=== PATIENT | female | born 1985 | race Caucasian/White ===

== ENCOUNTER 2017-05-16 17:00 | Emergency (ER) | payer MEDICAID ==
[2017-05-16] MEDS ORDERED: Ketorolac 30 MG/ML SDV IVPUSH ONE (18:34)
[2017-05-16] MEDS ORDERED: Lactated Ringers 1,000 ML IV ONE (18:34)
[2017-05-16] MEDS ORDERED: Prochlorperazine 10 MG/2 ML SDV IVPUSH ONE (18:35)
[2017-05-16] MEDS ORDERED: diphenhydrAMINE 50 MG/ML SDV IVPUSH ONE (18:35)
--- NOTE | 2017-05-16 18:46 | EDM.PDOC ---
ED HPI GENERAL MEDICAL PROBLEM - General Chief Complaint: Headache Stated Complaint: MIGRAINE Time Seen by Provider: 05/16/17 18:25 Source of Information: Reports: Patient History Limitations: Reports: No Limitations - History of Present Illness INITIAL COMMENTS - FREE TEXT/NARRATIVE: 32 yo female here with a migraine since 0500h today. Took ibuprofen 400 mg and Imitrex as well today without relief. Has nausea without RAUSCH. Has no fever. Is visiting from the [place] area. Has photophobia. No recent head injury. 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: NSAIDS, Other Medication(s) (Imitrex) Headache Pain Score (Numeric/FACES): 8 - Related Data Allergies Allergy/AdvReac Type Severity Reaction Status Date / Time meperidine HCl [From Demerol] Allergy Hives Verified 09/29/13 11:18 Home Meds: Home Meds SUMAtriptan 100 mg PO DAILY 05/16/17 [History] Past Medical History Cardiovascular History: Reports: Other (See Below) 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: Musculoskeletal History: Reports: Back Pain, Chronic Psychiatric History: Reports: ADD Oncologic (Cancer) History: Reports: Other (See Below) Other Oncologic History: pre cancer cells - Infectious Disease History Infectious Disease History: Reports: Chicken Pox - Past Surgical History HEENT Surgical History: Reports: Adenoidectomy, Tonsillectomy GI Surgical History: Reports: Appendectomy Social & Family History - Tobacco Use Smoking Status *Q: Heavy Tobacco Smoker Years of Tobacco use: 20 Packs/Tins Daily: 1 - Caffeine Use Caffeine Use: Reports: Coffee, Energy Drinks, Soda - Recreational Drug Use Recreational Drug Use: No ED ROS GENERAL - Review of Systems Review Of Systems: See Below Constitutional: Reports: No Symptoms HEENT: Reports: No Symptoms Respiratory: Reports: No Symptoms Cardiovascular: Reports: No Symptoms Endocrine: Reports: No Symptoms GI/Abdominal: Reports: Nausea. Denies: Anorexia, Black Stool, Bloody Stool, Vomiting : Reports: No Symptoms Musculoskeletal: Reports: No Symptoms Skin: Reports: No Symptoms Neurological: Reports: Headache Psychiatric: Reports: No Symptoms - Physical Exam Exam: See Below Exam Limited By: No Limitations General Appearance: Alert, WD/WN, No Apparent Distress Eye Exam: Bilateral Eye: EOMI, Normal Inspection, PERRL Ears: Normal External Exam, Normal Canal, Hearing Grossly Normal, Normal TMs Nose: Normal Inspection, Normal Mucosa, No Blood Throat/Mouth: Normal Inspection, Normal Lips, Normal Teeth, Normal Oropharynx, Normal Voice, No Airway Compromise Head Exam: Atraumatic, Normocephalic Neck: Normal Inspection, Supple, Non-Tender Respiratory/Chest: No Respiratory Distress, Lungs Clear, Normal Breath Sounds, No Accessory Muscle Use Cardiovascular: Regular Rate, Rhythm, No Edema GI/Abdominal: Normal Bowel Sounds, Soft, Non-Tender, No Distention Neuro Exam (Abbreviated): Alert, Oriented, CN II-XII Intact, Normal Cognition, No Motor/Sensory Deficits Back Exam: Normal Inspection. No: CVA Tenderness (R), CVA Tenderness (L) Extremities: Normal Inspection, Normal Range of Motion, Non-Tender, No Pedal Edema Psychiatric: Normal Affect, Normal Mood Skin Exam: Warm, Dry, Intact, Normal Color, No Rash Course - Vital Signs Text/Narrative:: Feeling much better after tx, will discharge. Last Recorded V/S: Last Vital Signs Temp 37.1 C 05/16/17 17:41 Pulse 95 05/16/17 17:41 Resp 18 05/16/17 17:41 BP 134/94 H 05/16/17 17:41 Pulse Ox 97 05/16/17 17:41 - Orders/Labs/Meds Meds: Medications Discontinued Medications Generic Name Dose Route Start Last Admin Trade Name Shannon PRN Reason Stop Dose Admin Diphenhydramine HCl 25 mg 05/16/17 18:35 05/16/17 18:50 Benadryl IVPUSH 05/16/17 18:36 25 mg ONETIME ONE Administration Lactated Ringer's 1,000 mls @ 1,000 mls/hr 05/16/17 18:34 05/16/17 18:52 Ringers, Lactated IV 05/16/17 19:33 1,000 mls/hr BOLUS ONE Administration Ketorolac Tromethamine 30 mg 05/16/17 18:34 05/16/17 18:47 Toradol IVPUSH 05/16/17 18:35 30 mg ONETIME ONE Administration Prochlorperazine Edisylate 10 mg 05/16/17 18:35 05/16/17 18:48 Compazine IVPUSH 05/16/17 18:36 10 mg ONETIME ONE Administration Departure - Departure Time of Disposition: 19:45 Disposition: Home, Self-Care 01 Condition: Good Clinical Impression: Migraine - Discharge Information Referrals: PCP,None [Primary Care Provider] - Forms: ED Department Discharge
== END 2017-05-16 19:52 | disposition home or self-care (01) ==
LOC: JP.ED 17:00
DX: G43.909 Migraine, unspecified, not intractable, without status migrainosus (principal); F17.210 Nicotine dependence, cigarettes, uncomplicated; Z88.5 Allergy status to narcotic agent; Z79.899 Other long term (current) drug therapy
CPT/HCPCS: 96361; 96374; 96375; 99283; J0780; J1200; J1885; J7120